=== PATIENT | female | born 1985 | race Caucasian/White ===

== ENCOUNTER 2017-09-23 23:23 | Emergency (ER) | payer OTHER ==
[~2017-09-23] VITALS: Ht 160 cm; Wt 87.1 kg
[2017-09-23 23:50] VITALS: BP 134/76
--- NOTE | 2017-09-24 00:01 | PHYS DOC ---
Past History Past Medical History: No Pertinent History Smoking: Non-smoker Alcohol Use: None Drug Use: None Adult General Chief Complaint Chief Complaint: not feeling baby movement HPI HPI 32-year-old female patient at 38 weeks of gestation states she didn't fill movement tonight unlike his usual condition that moving a lot while she is sleeping. Patient denies abdominal pain or contractions, vaginal bleeding or discharge, nausea and vomiting, fever and chills. Patient states she feels movement this afternoon. Review of Systems Review of Systems Constitutional: Denies fever or chills [] Eyes: Denies change in visual acuity, redness, or eye pain [] HENT: Denies nasal congestion or sore throat [] Respiratory: Denies cough or shortness of breath [] Cardiovascular: No additional information not addressed in HPI [] GI: Denies abdominal pain, nausea, vomiting, bloody stools or diarrhea [] : Denies dysuria or hematuria [] Musculoskeletal: Denies back pain or joint pain [] Integument: Denies rash or skin lesions [] Neurologic: Denies headache, focal weakness or sensory changes [] Endocrine: Denies polyuria or polydipsia [] All other systems were reviewed and found to be within normal limits, except as documented in this note. Physical Exam Physical Exam Constitutional: Well developed, well nourished, mild distress, non-toxic appearance. [] HENT: Normocephalic, atraumatic Eyes: PERRLA, EOMI, conjunctiva normal, no discharge. [] Neck: Normal range of motion, no tenderness, supple, no stridor. [] Cardiovascular:Heart rate regular rhythm, no murmur [] Lungs & Thorax: Bilateral breath sounds clear to auscultation [] Abdomen: Gravid abdomen, no contraction or tenderness, bowel sounds normal, soft , no tenderness, no masses, no pulsatile masses, heart rate be Doppler 135 -140. [] Skin: Warm, dry, no erythema, no rash. [] Back: No tenderness, no CVA tenderness. [] Extremities: No tenderness, no cyanosis, no clubbing, ROM intact, no edema. [] Neurologic: Alert and oriented X 3, normal motor function, normal sensory function, no focal deficits noted. [] Psychologic: Affect anxious, judgement normal, mood normal. [] EKG EKG [] Radiology/Procedures Radiology/Procedures [] Course & Med Decision Making Course & Med Decision Making Evaluation of patient in ER showed 32-year-old female patient at 38 weeks of gestation c/o not feeling movement since this evening. Patient had heart rate of 135-140 by bedside ultrasound and Doppler. On-call BACK END ENGINEER at [facility] Dr Lam informed at 2354 and recommended to discharge patient home with instruction to check movement and if the baby has less than 10 kick in 2 hours she needs to follow-up with OB triage at [facility]. Patient and her informed about plan of care. Dragon Disclaimer Dragon Disclaimer This electronic medical record was generated, in whole or in part, using a voice recognition dictation system. Departure Departure: Impression: Primary Impression: Decreased movement Disposition: 01 HOME, SELF-CARE (At 2359) Condition: IMPROVED Patient Instructions: Monitoring, Movement Assessment, Form - Movement Counts Additional Instructions: Count baby kicks in 2 hours and if it is less than 10 kicks, follow up with [facility] OB triage. MARTY MOSLEY MD Sep 24, 2017 00:01
== END 2017-09-24 00:02 | disposition home or self-care (01) ==
LOC: ER 23:23
DX: O36.8130 Decreased fetal movements, third trimester, not applicable or unspecified (principal); Z3A.38 38 weeks gestation of pregnancy
CPT/HCPCS: 99284